=== PATIENT | female | born 1985 | race Caucasian/White ===

== ENCOUNTER 2016-05-27 12:03 | Emergency (ER) | payer OTHER ==
[~2016-05-27] VITALS: Ht 154.9 cm; Wt 68.2 kg
[~2016-05-27 12:03] MED LIST: PHEN-773 PO; SULF1TAB7 PO
[2016-05-27 12:27] VITALS: BP 106/80; PULSE 110; RESP 10; O2SAT 100
[2016-05-27 13:40] VITALS: BP 114/53; PULSE 93; RESP 14; O2SAT 100
[2016-05-27 13:42] VITALS: BP 114/67; PULSE 100; RESP 9; O2SAT 100
[2016-05-27] MEDS ORDERED: 0.9% Sodium Chloride 1,000 ML IV ONE (14:13)
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
[2016-05-27 14:44] LABS: APPEARANCE,URINE HAZY (CLEAR,HAZY); COLOR,URINE DARK YELLOW (YELLOW)
[2016-05-27 14:45] LABS: OCCULT BLOOD,URINE NEGATIVE (NEGATIVE)
[2016-05-27 14:46] LABS: UROBILINOGEN,URINE NORMAL (NORMAL)
[2016-05-27 15:11] LABS: BASOPHILS % (AUTO) 0.3 % (0-3); EOSINOPHILS % (AUTO) 1.7 % (0-5); MONOCYTES % (AUTO) 7.5 % (4-12); Mean Corpuscular Hemoglobin 29.7 pg (27.0-35.0); Mean Corpuscular Volume 87.8 fL (81-100); NEUTROPHILS % (AUTO) 62.4 % (40-74); Platelet Count 242 bil/L (150-400)
[2016-05-27 15:18] VITALS: BP 114/62; PULSE 79; RESP 12; O2SAT 99
[2016-05-27 15:50] LABS: Lipase 23 U/L (13-60)
[2016-05-27] MEDS ORDERED: DOXY25TA46 PO (17:35)
[2016-05-27] MEDS ORDERED: PYR50 PO (17:35)
[2016-05-27 17:51] VITALS: BP 107/53; PULSE 90; RESP 14; O2SAT 99
== END 2016-05-27 17:57 | disposition home or self-care (01) ==
LOC: SED 12:03
DX: O26.891 Other specified pregnancy related conditions, first trimester (principal); R55 Syncope and collapse; O9A.211 Injury, poisoning and certain other consequences of external causes complicating pregnancy, first trimester; S39.012A Strain of muscle, fascia and tendon of lower back, initial encounter; V89.2XXA Person injured in unspecified motor-vehicle accident, traffic, initial encounter; Y93.89 Activity, other specified; Y92.410 Unspecified street and highway as the place of occurrence of the external cause; Y99.8 Other external cause status; O99.281 Endocrine, nutritional and metabolic diseases complicating pregnancy, first trimester; E86.0 Dehydration; O99.331 Smoking (tobacco) complicating pregnancy, first trimester; F17.200 Nicotine dependence, unspecified, uncomplicated; Z3A.01 Less than 8 weeks gestation of pregnancy
CPT/HCPCS: 80053; 81000; 81025; 83690; 84484; 84702; 85025; 93005; 96360; 99285; J7030